=== PATIENT | male | born 1940 | race Caucasian/White ===

== ENCOUNTER 2017-07-20 23:13 | Inpatient (IN) ==
[2017-07-20 23:54] LABS: BASO% 0.6 % (0.0-0.8); EOS# 0.17 X1000 (0.0-0.7); EOS% 1.2 % (0.0-10.0); HEMATOCRIT 42.9 % (42.0-52.0); HEMOGLOBIN 14.3 g/dL (14.0-18.0); IMM GRAN# 0.11 X1000 (0.0-0.04); IMM GRAN% 0.8 % (0.0-0.5); LYMPH# 3.02 X1000 (1.2-3.4); LYMPH% 21.7 % (20.5-51.1); MANUAL DIFF NEEDED? NO; MCH 31.4 PG (27-31); MCHC 33.3 g/dL (33-37); MCV 94.1 FL (81-99); MONO% 6.5 % (1.7-9.3); MPV 11.1 FL (7.4-10.4); NEUT% 69.2 % (42.2-75.2); PLT 275 X1000 (130-400); RBC 4.56 XMIL (4.7-6.1)
[2017-07-20 23:59] LABS: INR 0.96; PROTIME 10.1 Seconds (9.2-11.7); PTT 24.9 Seconds (22.0-36.0)
[2017-07-21] MEDS ORDERED: ASPIRIN PO ONE (00:01)
[2017-07-21 00:04] LABS: ALBUMIN 4.3 g/dL (3.5-5.0); CALCIUM 9.8 mg/dL (8.8-10.2); POTASSIUM 3.8 mmol/L (3.5-5.1); TOTAL BILIRUBIN 0.51 mg/dL (0.20-1.00); TOTAL PROTEIN 8.3 g/dL (6.3-8.3)
[2017-07-21 02:13] LABS: URINE MICRO REVIEW NEEDED? NO; URINE SOURCE CLEAN CATCH
[2017-07-21 02:16] LABS: BILIRUBIN URINE NEGATIVE (NEGATIVE); BLOOD URINE NEGATIVE (NEGATIVE); COLOR STRAW; GLUCOSE URINE NEGATIVE (NEGATIVE); LEUKOCYTES URINE NEGATIVE (NEGATIVE); NITRITE URINE NEGATIVE (NEGATIVE); PH URINE 5.5; PROTEIN URINE NEGATIVE (NEGATIVE); TURBIDITY URINE CLEAR (CLEAR); UROBILINOGEN URINE NORMAL (NORMAL)
[2017-07-21 02:18] LABS: UR EPITHELIAL CELLS <10 /HPF (<10); URINE BACTERIA NEGATIVE /HPF; URINE RBC <10 /HPF (<10); URINE WBC <10 /HPF (<10)
[2017-07-21 02:31] LABS: UR AMPHETAMINES QUAL NONE DETECTED (NONE DETECT); UR BARBITUATES QUAL NONE DETECTED (NONE DETECT); UR BENZODIAZEPIN QUAL NONE DETECTED (NONE DETECT); UR CANNABINOIDS QUAL NONE DETECTED (NONE DETECT); UR COCAINE QUAL NONE DETECTED (NONE DETECT); UR METHADONE QUAL NONE DETECTED (NONE DETECT); UR OPIATES QUAL NONE DETECTED (NONE DETECT); UR OXYCODONE QUAL NONE DETECTED (NONE DETECT); UR PCP QUAL NONE DETECTED (NONE DETECT)
[2017-07-21] MEDS ORDERED: NITROGLYCERIN SL PRN (03:52)
[2017-07-21] MEDS ORDERED: TYLENOL PO PRN (03:52)
[2017-07-21] MEDS ORDERED: ZOFRAN IV PRN (03:52)
[2017-07-21] MEDS ORDERED: PNEUMOVAX 23 IM ONE (05:24)
[2017-07-21] MEDS ORDERED: FLUZONE QUAD 2017-2018 SYRINGE IM ONE (05:25)
--- NOTE | 2017-07-21 06:08 | Diag Imaging Result Doc PS360 ---
EXAM: CHEST-1 VIEW HISTORY: syncope TECHNIQUE: Portable AP COMPARISON: 10/22/2012 FINDINGS: The lungs are well expanded. The heart is not enlarged. The vessels are not distended. There are no infiltrates. No effusion identified. IMPRESSION: Negative exam. Electronically signed by Skip Sharpe 07/21/2017 6:06 AM
[2017-07-21] MEDS: PRILOSEC PO SCH (06:45)
--- NOTE | 2017-07-21 07:43 | Diag Imaging Result Doc PS360 ---
EXAM: CT HEAD W/O CONTRAST HISTORY: SYNCOPE TECHNIQUE: CT brain without contrast. Dose reduction protocol. COMPARISON: None. FINDINGS: No parenchymal hemorrhage. No epidural or subdural hematoma. No subarachnoid hemorrhage. Mild chronic microvascular ischemic changes. No mass identified on this noncontrasted exam. No hydrocephalus. There is 50% opacification of the right maxillary sinus with an air-fluid level. IMPRESSION: 1.No hemorrhage 2.Chronic microvascular ischemic changes 3.Right maxillary sinusitis 4.A preliminary report was given at 1:20 AM Electronically signed by Skip Sharpe 07/21/2017 7:41 AM
[2017-07-21] MEDS ORDERED: ASPIRIN PO SCH (09:00)
[2017-07-21] MEDS: 1/2 NS 1,000 ML IV SCH (15:48)
[2017-07-21] MEDS: FLOMAX PO SCH (20:32)
[2017-07-21] MEDS: LOPRESSOR PO SCH (20:32)
[2017-07-22] MEDS: FLONASE NAS SCH ×2 (01:46→09:47)
[2017-07-22] MEDS: 1/2 NS 1,000 ML IV SCH ×2 (04:42→16:22)
[2017-07-22] MEDS: PRILOSEC PO SCH (06:32)
[2017-07-22 07:07] LABS: HDL 37 mg/dL (35-55); LDL 106 mg/dL; TRIGLYCERIDES 237 mg/dL (39-160); VLDL 47 mg/dL
[2017-07-22 08:07] LABS: CALCIUM 9.1 mg/dL (8.8-10.2); POTASSIUM 4.7 mmol/L (3.5-5.1)
[2017-07-22] MEDS: PRAVACHOL PO SCH (09:45)
[2017-07-22] MEDS: FLOMAX PO SCH ×2 (09:46→21:30)
[2017-07-22] MEDS: ASPIRIN EC PO SCH (09:46)
[2017-07-22] MEDS: ZYLOPRIM PO SCH (09:46)
[2017-07-22] MEDS: LOPRESSOR PO SCH ×2 (09:46→21:29)
[2017-07-22] MEDS: PROSCAR PO SCH (09:46)
[2017-07-23] MEDS: 1/2 NS 1,000 ML IV SCH (05:35)
--- NOTE | 2017-07-23 05:39 | EKG Report ---
Test Performed on : 07/20/2017 11:23:03 PM Test Reason : SYNCOPE Blood Pressure : / mmHG Vent. Rate : 093 BPM Atrial Rate : 093 BPM P-R Int : 214 ms QRS Dur : 144 ms QT Int : 392 ms P-R-T Axes : 001 011 237 degrees QTc Int : 487 ms Sinus rhythm. with 1st degree AV block. Left bundle branch block Abnormal ECG When compared with ECG of 05-APR-2009 15:01, Left bundle branch block is now present Minimal criteria for Anterior infarct are no longer present Unconfirmed Result
[2017-07-23] MEDS: PRILOSEC PO SCH (06:05)
[2017-07-23 06:43] LABS: MANUAL DIFF NEEDED? NO
[2017-07-23 06:54] LABS: BASO% 0.6 % (0.0-0.8); EOS# 0.38 X1000 (0.0-0.7); EOS% 2.6 % (0.0-10.0); HEMATOCRIT 40.6 % (42.0-52.0); HEMOGLOBIN 13.4 g/dL (14.0-18.0); IMM GRAN# 0.06 X1000 (0.0-0.04); IMM GRAN% 0.4 % (0.0-0.5); LYMPH# 4.26 X1000 (1.2-3.4); MONO# 0.98 X1000 (0.11-0.59); MONO% 6.7 % (1.7-9.3); MPV 10.9 FL (7.4-10.4); NEUT% 60.7 % (42.2-75.2); PLT 239 X1000 (130-400); RBC 4.32 XMIL (4.7-6.1)
[2017-07-23 06:59] LABS: INR 0.96
[2017-07-23 07:03] LABS: CALCIUM 9.5 mg/dL (8.8-10.2); POTASSIUM 4.4 mmol/L (3.5-5.1)
[2017-07-23] MEDS: FLONASE NAS SCH (08:39)
[2017-07-23] MEDS: ZYLOPRIM PO SCH (08:39)
[2017-07-23] MEDS: PRAVACHOL PO SCH (08:39)
[2017-07-23] MEDS: FLOMAX PO SCH (08:39)
[2017-07-23] MEDS: PROSCAR PO SCH (08:39)
[2017-07-23] MEDS: ASPIRIN EC PO SCH (08:39)
[2017-07-23] MEDS: LOPRESSOR PO SCH (08:39)
[2017-07-23] MEDS ORDERED: HEPARIN 1000 UNITS/NS 2,000 UNIT/1,000 ML IV.SOLN ONE (08:41)
[2017-07-23] MEDS ORDERED: VERSED ONE (09:38)
[2017-07-23] MEDS ORDERED: MORPHINE ONE (09:39)
[2017-07-23] MEDS ORDERED: CLAVE TWINSITE 32 IN 11959 ONE (09:44)
--- NOTE | 2017-07-23 12:22 | EKG Report ---
Test Performed on : 07/23/2017 11:49:08 AM Test Reason : post cath Blood Pressure : / mmHG Vent. Rate : 060 BPM Atrial Rate : 060 BPM P-R Int : 264 ms QRS Dur : 140 ms QT Int : 452 ms P-R-T Axes : -01 006 162 degrees QTc Int : 452 ms Sinus rhythm. with 1st degree AV block. Left bundle branch block Abnormal ECG When compared with ECG of 20-JUL-2017 23:23, Vent. rate has decreased BY 33 BPM Confirmed by Olamide TAYLOR, Garry Murray ([id number]) on 07/23/2017 8:51:10 PM
--- NOTE | 2017-07-23 14:35 | ECHO REPORT ---
ORDER DATE: 07/22/2017 2D ECHOCARDIOGRAM: ECHOCARDIOGRAPHIC MEASUREMENTS: 1. Interventricular septum 0.9 left ventricular posterior wall 0.9. Diastolic diameter 5.7. Left atrium 3.6. Aorta 3.7. Normal left ventricular cavity size. Estimated ejection fraction of 35-40%. There is global hypokinesis mild. 2. Aortic valve leaflet were trileaflet. Mitral valve was normal. Tricuspid valve was normal. Pulmonic valve was normal. Peak velocity across the aortic valve less than 2 m/sec. There is no aortic stenosis. There is mild aortic regurgitation. There is trace to mild mitral regurgitation. Mild tricuspid regurgitation. Peak velocity across the tricuspid valve was less than 2 m/sec. There is trace pulmonary regurgitation. 3. There is no pericardial effusion or obvious intracardiac mass or thrombus seen. cc: Rashad Pacheco MD
[2017-07-23 15:35] VITALS: BP 121/64
[2017-07-24] MEDS ORDERED: PRINIVIL PO SCH (09:00)
== END 2017-07-23 17:15 | disposition home or self-care (01) ==
LOC: 3N 23:13 → ED 23:13 → SUATTDRO 07-21 03:40 → 3S 07-23 09:31
PROVIDERS: ATTEND Internal Medicine

== ENCOUNTER 2019-04-04 12:31 | Inpatient (IN) ==
[2019-04-04] MEDS ORDERED: ZOFRAN IV ONE (12:51)
[2019-04-04] MEDS ORDERED: NS 1,000 ML IV ONE ×2 (12:51→15:19)
[2019-04-04] MEDS ORDERED: MORPHINE IV ONE (12:51)
[2019-04-04] MEDS ORDERED: BENTYL IM ONE (12:53)
[2019-04-04 13:39] LABS: BASO# 0.07 X1000 (0.0-0.2); BASO% 0.4 % (0.0-0.8); EOS# 0.03 X1000 (0.0-0.7); EOS% 0.2 % (0.0-10.0); HEMATOCRIT 45.6 % (42.0-52.0); HEMOGLOBIN 15.2 g/dL (14.0-18.0); IMM GRAN# 0.05 X1000 (0.0-0.04); IMM GRAN% 0.3 % (0.0-0.5); LYMPH# 1.63 X1000 (1.2-3.4); LYMPH% 10.4 % (20.5-51.1); MCH 29.2 PG (27-31); MCHC 33.3 g/dL (33-37); MCV 87.5 FL (81-99); MONO# 0.85 X1000 (0.11-0.59); MONO% 5.4 % (1.7-9.3); NEUT# 13.05 X1000 (1.4-6.5); NEUT% 83.3 % (42.2-75.2); PLT 253 X1000 (130-400); RBC 5.21 XMIL (4.7-6.1); RDW 16.6 % (11.5-14.5); WBC 15.68 X1000 (4.8-10.8)
[2019-04-04 13:50] LABS: INR 0.96; PROTIME 13.6 Seconds (11.0-16.0)
[2019-04-04 13:55] LABS: URINE SOURCE CLEAN CATCH
[2019-04-04 13:57] LABS: ALB/GLOB RATIO 1.1; CREATININE 1.3 mg/dL (0.7-1.2); MAGNESIUM 1.9 mg/dL (1.5-2.7); POTASSIUM 3.3 mmol/L (3.5-5.1); TOTAL BILIRUBIN 1.17 mg/dL (0.20-1.00); TOTAL PROTEIN 7.8 g/dL (6.3-8.3)
[2019-04-04 13:58] LABS: BILIRUBIN URINE NEGATIVE (NEGATIVE); BLOOD URINE TRACE (NEGATIVE); COLOR YELLOW; GLUCOSE URINE NEGATIVE (NEGATIVE); KETONE URINE NEGATIVE (NEGATIVE); LEUKOCYTES URINE NEGATIVE (NEGATIVE); NITRITE URINE NEGATIVE (NEGATIVE); PH URINE 5.5; PROTEIN URINE 100 mg/dL (NEGATIVE); SP GRAVITY URINE 1.024; TURBIDITY URINE CLEAR (CLEAR); UROBILINOGEN URINE NORMAL (NORMAL)
[2019-04-04 14:00] LABS: UR EPITHELIAL CELLS <10 /HPF (<10); URINE BACTERIA NEGATIVE /HPF; URINE RBC <10 /HPF (<10); URINE WBC <10 /HPF (<10)
[2019-04-04 14:16] LABS: URINE CASTS GRANULAR PRESENT
--- NOTE | 2019-04-04 15:00 | Diag Imaging Result Doc PS360 ---
CT ABD/PELVIS W/IV CONT ONLY - 04/04/2019 INDICATION: colitis COMPARISON: None FINDINGS: The lung bases are clear and the heart size is normal. There are cholecystectomy changes. Otherwise all abdominal organs are normal. There is some ill-defined edema around the cecum and ascending colon. There are a few scattered diverticula of the colon. No constipation. There is a benign-appearing, rim calcified cyst of the omentum inferiorly. There is another rim calcified area of fatty scarring at the sigmoid colon. Urinary bladder is collapsed with nonspecific wall thickening. Prostate and rectum are normal. There are small bilateral fat-containing inguinal hernias. No free air or free fluid. There are moderate degenerative changes of the spine. No acute or suspicious bony lesion. IMPRESSION: 1. Colitis of the proximal colon. Mild diverticulosis of the distal colon. 2. Collapsed gallbladder with nonspecific wall thickening. This exam was performed using automated exposure control, adjustment of mA or kV according to patient size, and/or use of iterative reconstruction technique Electronically signed by Lincoln Dunn 04/04/2019 2:58 PM
[2019-04-04] MEDS ORDERED: ZOSYN 4.5 GM in NS 100 ML IV ONE (15:14)
--- NOTE | 2019-04-04 15:23 | PROVIDER DOCUMENTATION ---
This chart was entered by Sandy Velazquez Scribe, acting as scribe for Jesus Rose MD. HPI-Abdominal Pain/GI Problem - General Chief Complaint: Diarrhea Stated Complaint: STOMACH PAIN/DIARRHEA Time Seen by Provider: 04/04/19 12:44 Source: patient Allergies/Adverse Reactions: Patient Allergies Allergy/AdvReac Type Severity Reaction Status Date / Time No Known Allergies Allergy Verified 04/04/19 13:00 Home Medications: Home Medication List Medication Instructions Recorded Confirmed Last Taken Type Allopurinol 300 mg PO DAILY 06/22/12 07/21/17 07/20/17 07:00 History Docusate Sodium [Colace] 100 mg PO DAILY 06/22/12 07/21/17 07/20/17 07:00 Hi story LISINOpril [Prinivil] 20 mg PO DAILY 06/22/12 07/21/17 07/20/17 07:00 History Methocarbamol [Robaxin] 500 mg PO BID 06/22/12 07/21/17 07/20/17 07:00 History Metoprolol [Lopressor] 25 mg PO BID 06/22/12 07/21/17 07/20/17 07:00 History PRAVAstatin [Pravachol] 20 mg PO DAILY 06/22/12 07/21/17 07/20/17 07:00 History Loratadine 10 mg PO DIRECTED #7 tablet 10/22/12 07/21/17 07/20/17 07:00 Rx Aspirin [Aspirin EC] 81 mg PO DAILY 07/17/13 07/21/17 07/20/17 07:00 History Finasteride [Proscar] 5 mg PO DAILY 07/17/13 07/21/17 07/20/17 07:00 History Duloxetine [Cymbalta] 30 mg PO QHS 07/21/17 07/21/17 07/19/17 21:00 History Tramadol [Ultram] 50 mg PO Q6H PRN PRN 07/21/17 07/21/17 Unknown History Fluticasone 50 Mcg Nasal Brandon 1 spray PEALR DAILY #1 bottle 07/23/17 Unknown Rx [Flonase] LISINOpril [Prinivil] 20 mg PO DAILY tablet 07/23/17 Unknown Rx Tamsulosin [Flomax] 0.4 mg PO BID capsule 07/23/17 Unknown Rx - History of Present Illness-ABD Nature of Presenting Problems: Patient is a 78 year old male who presents with lower abdominal pain, diarrhea and body aches that have been present for 5 days. Denies fever, nausea, and vomiting. Reports he has not recently took antibiotics. Abdominal Pain Onset Location: reports: other (lower) Pain Radiation: reports: no radiation Quality of Pain: reports: aching Severity in ED: reports: mild Onset/Duration: reports: 5 days ago Timing: reports: still present Activities at Onset: reports: light activity Associated Symptoms: reports: diarrhea, muscle aches. denies: nausea, vomiting Dark Stools Present?: reports: none noticed Rectal Bleeding: reports: none Rectal Pain: reports: none Emesis Description: reports: none Similar Symptoms Previously?: Yes Recently seen or treated by another doctor?: No Review of Systems - Adult - REVIEW OF SYSTEMS - ADULT Constitutional: reports: no symptoms reported. denies: chills, fever, fatique Eyes: reports: no symptoms reported Ears, Nose, Mouth & Throat: reports: no symptoms reported Cardiovascular: reports: no symptoms reported Respiratory: reports: no symptoms reported Gastrointestinal: reports: see HPI, abdominal pain (lower), diarrhea. denies: nausea, vomiting Genitourinary: reports: no symptoms reported Musculoskeletal: reports: see HPI, muscle aches. denies: back pain, neck pain Integumentary: reports: no symptoms reported Neurological: reports: no symptoms reported Psychiatric: reports: no symptoms reported Endocrine: reports: no symptoms reported Hematologic/Lymphatic: reports: no symptoms reported Allergic/Immunologic: reports: no symptoms reported All Other Systems: Reviewed and Negative Past History - Adult - PAST MEDICAL HISTORY-ADULT Review of Records: reports: Old Records Reviewed, Nursing Assessment Review, Medications Reviewed, Social history reviewed & non-contributory. Major Childhood Illnesses: reports: denies history Cardiovascular: reports: HTN, hyperlipidemia, other (cardiac stent x1) Respiratory: reports: denies history Gastrointestinal: reports: denies history Obstetrical/Gynecological: reports: denies history Genitourinary: reports: other (prostate issues) Musculoskeletal: reports: arthritis (gout) Neurological: reports: dementia Endocrine/Immune: reports: denies history Other Conditions: reports: denies history - PRIOR SURGERIES/PROCEDURES Surgical/Procedure History: reports: colonoscopy, cholecystectomy, other (skin ca removal) - IMMUNIZATION STATUS Childhood Immunizations: See Nurse Assessment Flu Vaccine: See Nurse Assessment - FAMILY HISTORY Family History: reviewed, not pertinent - SOCIAL HISTORY Smoking: cigarettes, less than 1 pack/day Provider spent 3-5 mins advising pt. on dangers of tobacco.: Discussed manners to quit use, and f/u contacts for add'l counseling. Substance Use: denies Living Situation: family Physical Exam-General - PHYSICAL EXAM-ADULT Initial Vital Signs Reviewed: Yes - CONSTITUTIONAL General Appearance: alert, no apparent distress. negative: lethargic, slow to respond - HEAD, EARS, NOSE, MOUTH & THROAT HENMT: normocephalic/atraumatic, other (dry mucous membranes). negative: angioedema, hearing deficit - RESPIRATORY Respiratory: chest non-tender, lungs clear, normal breath sounds. negative: crackles, rhonchi, stridor - CARDIOVASCULAR Cardiovascular: normal peripheral pulses, tachycardia. negative: systolic murmur - GASTROINTESTINAL (ABDOMEN) Abdominal Exam: normal bowel sounds, non tender, soft. negative: guarding, rebound - MUSCULOSKELETAL Extremity: non-tender, normal inspection. negative: deformity, erythema - SKIN Integumentary: normal color, normal turgor, warm/dry. negative: cyanosis, ecchymosis, erythema, jaundice - NEUROLOGIC Neurologic: grossly normal. negative: aphasia, facial droop - PSYCHIATRIC Psych/Mental Status: normal mood/affect, oriented x 3. negative: anxious Progress - PLAN OF CARE/RESULTS Progress/Plan/Lab Results: Vital Signs - 8 hr 04/04/19 12:37 Temperature 98.5 F Pulse Rate 108 H Respiratory Rate 18 Blood Pressure 127/82 O2 Sat by Pulse Oximetry 97 Result Diagrams: 04/04/19 13:10 04/04/19 13:17 - REASSESSMENT Reassessment #1 Time Reassessed: 15:20 Status: improving (after ivf and pain meds. Will give IV zosyn. Patient meets criteria for sepsis, but not severe sepsis.) - CT/MRI 1 CT Study: Abdomen, Pelvis Impression: See EMR Report (Signed CT ABD/PELVIS W/IV CONT ONLY - 04/04/2019 INDICATION: colitis COMPARISON: None FINDINGS: The lung bases are clear and the heart size is normal. There are cholecystectomy changes. Otherwise all abdominal organs are normal. There is some ill-defined edema around the cecum and ascending colon. There are a few scattered diverticula of t he colon. No constipation. There is a benign-appearing, rim calcified cyst of the omentum inferiorly. There is another rim calcified area of fatty scarring at the sigmoid colon. Urinary bladder is collapsed with nonspecific wall thickening. Prostate and rectum are normal. There are small bilateral fat- containing inguinal hernias. No free air or free fluid. There are moderate degenerative changes of the spine. No acute or suspicious bony lesion. IMPRESSION: 1. Colitis of the proximal colon. Mild diverticulosis of the distal colon. 2. Collapsed gallbladder with nonspecific wall thickening. This exam was performed using automated exposure control, adjustment of mA or kV according to patient size, and/or use of iterative reconstruction technique Electronically signed by Lincoln Dunn 04/04/2019 2:58 PM 04/04/19 0978 Interpreting Physician: Lincoln Dunn MD Dictated Date/Time: 04/04/19 1449 cc: Jesus Rose MD; Ruthie Allen) - CONSULTS/PCP/HOSPITALIST Notification #1 *Consult/PCP/Hospitalist*: VICTORIA Ortega for Hospitalist Time Discussed: 15:17 (Dr. Chambers accepted admit) Reason/Comments: Dr. Rose consulted with Shannon about patient. Consult Disposition: Will see in ED, Admit Departure - Departure Date of Disposition Decision: 04/04/19 Time of Disposition Decision: 15:18 DIAGNOSIS: Diverticulitis large intestine w/o perforation or abscess w/o bleeding, Colitis, Sepsis without acute organ dysfunction Disposition: ADMITTED INPATIENT 09 Certified Medical Emergency: Emergent Condition: Fair Referrals and Follow-Ups: Ruthie Allen [Primary Care Provider] - - Critical Care Note This patient required my direct & personal management of CC.: No Attestation - Physician/ NICOLASA Attestation Patient care was provided by Advanced Practice Provider:: No The physician spent face to face time with patient:: Yes Advanced Practice Provider documentation review:: Supervising physician onsite and consulted in the evaluation and care of this patient. The physician did have a face to face encounter with the patient. This chart was documented by the indicated scribe, (Sandy Velazquez Scribe) and accurately reflects the services I performed and decisions made by me, Jesus Rose MD, as attested by the provider's signature.
[2019-04-04] MEDS ORDERED: MORPHINE IV PRN (17:35)
[2019-04-04] MEDS ORDERED: ZOFRAN IV PRN (17:35)
[2019-04-04 18:59] LABS: INR 0.99; PROTIME 13.9 Seconds (11.0-16.0)
--- NOTE | 2019-04-04 19:04 | Diag Imaging Result Doc PS360 ---
CHEST-1 VIEW - 04/04/2019 INDICATION: Sepsis protocol COMPARISON: 07/21/2017 FINDINGS: The lungs are normally expanded and clear. Heart size and mediastinal contours are normal. No pneumothorax or pleural effusion. IMPRESSION: Negative exam. Electronically signed by Lincoln Dunn 04/04/2019 7:01 PM
--- NOTE | 2019-04-04 20:24 | HISTORY AND PHYSICAL ---
PRIMARY CARE PROVIDER: Dr. Ruthie Allen. CHIEF COMPLAINT: Initially, patient said he did not have any complaints; however, son at bedside said he has some dementia, and he was having some right lower quadrant pain. HISTORY OF PRESENT ILLNESS: Mr. Conteh is a 78-year-old male who carries a past medical history of dementia, coronary artery disease and hypertension. Presented to the ED with complaint of abdominal pain, watery diarrhea and continued increase in weakness. Per the son, he goes to bed at 9, does not get up till noon. He will get up and nap on the couch and then go back to bed that night. He denies any fever, chills, headache, cough, nausea, vomiting, chest pain or shortness of breath per se. He does feel that he gets winded after he is up and trying to walk around. Workup in the ED: Abdomen and pelvis CT showed colitis of the proximal colon, mild diverticulitis of the distal colon, and a collapsed gallbladder with nonspecific wall thickening. He also had an elevated white count of 15. Appears to have acute on chronic kidney disease. He also had a elevated T-bili. We will admit him to the medical telemetry floor and treat him for diverticulitis. Await Dr. Rodriguez's recommendation. He was started on IV Zosyn. REVIEW OF SYSTEMS: Twelve-point review of systems completely negative except for those mentioned in HPI. PAST MEDICAL HISTORY: 1. Coronary artery disease. 2. Hypertension. 3. Dementia. 4. Benign prostatic hypertrophy. PAST SURGICAL HISTORY: 1. Coronary stent. 2. Cholecystectomy. ALLERGIES: No known drug allergies. HOME MEDICATIONS: Have not been reconciled. SOCIAL HISTORY: He lives with his son. He was a [id number] smoker previously, but he has stopped and started throughout the years. No alcohol or illicit drug use. FAMILY HISTORY: Positive for coronary artery disease in his father. PHYSICAL EXAMINATION: GENERAL: Mr. Conteh is a pleasant 78-year-old male who is sitting on the stretcher asleep. He awakened easily. He is in no acute distress. HEENT: Atraumatic, normocephalic. PERRL. NECK: Supple. Trachea midline. CARDIOVASCULAR: S1, S2 appreciated. No murmurs, gallops, rubs noted. RESPIRATORY: Lung sounds clear bilaterally . ABDOMEN: Soft, mildly tender to his right lower quadrant. Positive bowel sounds in 4 quadrants. EXTREMITIES: Negative for edema. The patient is awake, alert, oriented x4. Follows commands. Moves all extremities. DIAGNOSTIC DATA: CT per HPI. LABORATORY DATA: White count 15, hemoglobin and hematocrit 15 and 45, platelet count 253. Sodium 136, potassium 3.3, BUN 18, creatinine 1.3, blood glucose 120, T bilirubin 1.17, alkaline phosphatase 163. Urinalysis was negative for nitrates, negative for bacteria. ASSESSMENT AND PLAN: 1. Diverticulitis. The patient was given IV Zosyn. We will continue with antibiotics, IV fluids. Placed on a clear liquid diet. Will provide him with antiemetics and pain medication. Consult Dr. Rodriguez. Blood cultures have also been obtained. 2. Leukocytosis secondary to #1. 3. Coronary artery disease. No complaint of chest pain. 4. Hypertension, stable. Will continue home medications when verified and appropriate. 5. Dementia. The patient is pleasant. 6. Benign prostatic hypertrophy. Aware. 7. Further recommendations to follow physician evaluation, laboratory and diagnostic data. Dictated by VICTORIA Dale for Gerry Chambers MD cc: Gerry Chambers MD ADDENDUM: I agree with most components of history, physical, assessment and plan. A separate addendum has been dictated. SOWMYA
[2019-04-04] MEDS ORDERED: ZOSYN 3.375 GM in NS 50 ML IV SCH (21:00)
[2019-04-04] MEDS: SINGULAIR PO SCH (21:38)
[2019-04-04] MEDS: CYMBALTA PO SCH (21:38)
[2019-04-04] MEDS: ARICEPT PO SCH (21:39)
[2019-04-04] MEDS: KLOR-CON PO SCH ×2 (21:39→23:28)
[2019-04-04] MEDS: TOPROL XL PO SCH (21:39)
[2019-04-04] MEDS: PRAVACHOL PO SCH (21:39)
--- NOTE | 2019-04-04 21:56 | HISTORY AND PHYSICAL ---
ADDENDUM: This is an addendum to the History and Physical dictated by the nurse practitioner. I agree with most components of the history, physical, assessment, and plan. In brief, Mr. Conteh is a 78-year-old man, with a past medical history of coronary artery disease requiring stent in approximately 2011, essential hypertension, gout, hyperlipidemia, benign prostatic hypertrophy, chronic pain, COPD, who quit smoking approximately 30 years ago, on inhalers at home, obstructive sleep apnea on home CPAP, who comes in with chief complaints of abdominal pain and diarrhea of about 7 days duration. Patient does have mild cognitive impairment. Patient mentions that he has been having loose watery stools since the last 7 days, which got worse to an extent that he has had 4 or 5 loose watery bowel movements at nighttime, associated with abdominal pain, so he woke his son up in the morning time and they decided to come to the emergency room. In the emergency room, he was found to have sepsis with leukocytosis, tachycardia, and hypokalemia, and so hospitalist team was consulted for further management. At the time of my evaluation, patient also mentions exertional dyspnea, and he has a scheduled appointment with Dr. Pacheco outpatient. He denies any chest pain or shortness of breath at rest. His abdominal pain has resolved. PHYSICAL EXAMINATION: VITAL SIGNS: Temperature of 98 degrees, pulse 75, respiratory rate 16, blood pressure 150/63, saturating 94% on room air. GENERAL: Does not appear in any acute distress. ORAL CAVITY: Dry. LUNGS: Air entry bilaterally equal. No wheeze, rhonchi, crackles. CARDIOVASCULAR: S1, S2 normal. No murmur or gallop. ABDOMEN: Soft, nontender. Active bowel sounds. EXTREMITIES: No lower extremity edema. NEUROLOGIC: He is alert. He is oriented to time, place, and person, and mildly with the situation. However, he does have some memory impairment. LABS: Suggestive of leukocytosis with WBC of 15,000, normal hemoglobin, normal platelet count. Potassium of 3.3 and his hypokalemia is currently being repleted. He does have chronic kidney disease stage 3. MICROBIOLOGY: Blood cultures are in lab. C difficile toxin was negative. IMAGING: Chest x-ray was unremarkable. Abdomen/pelvis CT had colitis of the proximal colon and mild diverticulosis. ASSESSMENT AND PLAN: 1. Sepsis due to right-sided colitis, which could be viral or bacterial considering his prolonged symptoms. 2. Hypokalemia. 3. Chronic kidney disease, stage 3. 4. Exertional shortness of breath. 5. Obstructive sleep apnea. 6. Essential hypertension, gout, hyperlipidemia, benign prostatic hypertrophy, chronic pain. 7. Chronic obstructive pulmonary disease without acute exacerbation. PLAN: 1. I will start patient on intravenous antibiotics, ceftriaxone and metronidazole. Follow up with blood culture results. 2. Start patient on clear liquid diet. 3. Replete his potassium. 4. Resume his home medications. 5. I will also get EKG as a baseline. He has been having exertional shortness of breath since many months now, and I advised him to get outpatient cardiology evaluation. 6. Disposition. I will continue to monitor patient inside the hospital. Plan of care was discussed with the patient and his son at bedside. All of their questions have been answered. Patient had to perform in a birthday democrat on Sunday, and I discussed with them that his discharge plan would depend on his recovery. cc: Gerry Chambers MD
[2019-04-04] MEDS: FLAGYL 500 MG/NS 500 MG/100 ML IVPB IV SCH (22:44)
[2019-04-05] MEDS: ROCEPHIN 1 GM in NS 50 ML IV SCH (01:40)
[2019-04-05] MEDS: FLAGYL 500 MG/NS 500 MG/100 ML IVPB IV SCH ×4 (04:48→23:10)
[2019-04-05] MEDS: ZYLOPRIM PO SCH (08:34)
[2019-04-05] MEDS: PROSCAR PO SCH (08:34)
[2019-04-05] MEDS: ASPIRIN EC PO SCH (08:35)
[2019-04-05] MEDS: TOPROL XL PO SCH (08:36)
[2019-04-05] MEDS ORDERED: VITAMIN D PO SCH (09:00)
[2019-04-05] MEDS: CALMOSEPTINE OINTMENT TOP PRN ×2 (11:25→23:11)
[2019-04-05] MEDS: VITAMIN B-12 PO SCH (11:31)
[2019-04-05] MEDS: VITAMIN D PO SCH (11:32)
[2019-04-05 11:35] LABS: BASO# 0.09 X1000 (0.0-0.2); BASO% 0.7 % (0.0-0.8); EOS# 0.22 X1000 (0.0-0.7); EOS% 1.6 % (0.0-10.0); HEMATOCRIT 43.9 % (42.0-52.0); HEMOGLOBIN 14.2 g/dL (14.0-18.0); IMM GRAN# 0.04 X1000 (0.0-0.04); IMM GRAN% 0.3 % (0.0-0.5); LYMPH# 3.14 X1000 (1.2-3.4); LYMPH% 23.5 % (20.5-51.1); MCHC 32.3 g/dL (33-37); MCV 89.6 FL (81-99); MONO# 1.06 X1000 (0.11-0.59); MONO% 7.9 % (1.7-9.3); MPV 10.3 FL (7.4-10.4); NEUT# 8.84 X1000 (1.4-6.5); PLT 233 X1000 (130-400); RDW 16.6 % (11.5-14.5); WBC 13.39 X1000 (4.8-10.8)
[2019-04-05 11:53] LABS: CALCIUM 8.7 mg/dL (8.8-10.2); CREATININE 1.2 mg/dL (0.7-1.2); POTASSIUM 3.6 mmol/L (3.5-5.1)
--- NOTE | 2019-04-05 14:08 | PROGRESS NOTE ---
DATE: 04/05/2019 INTERVAL HISTORY: He had episode of bradycardia with heart rate in 40s. Telemetry strip has sinus or junctional bradycardia with wide complex. He has had about 7 to 8 bowel movements since he has been in this room. However, 4 of them have been charted. He is hungry and wants to eat more. He denies any chest pain, nausea, vomiting, or abdominal pain. His diarrhea is only complaint. Stool sample has not been collected yet. Family is at bedside. VITALS: Temperature 97.7 degrees, pulse 60, respiratory 24, blood pressure 140/70. He is saturating 97% on room air. PHYSICAL EXAMINATION: He does not appear in any acute distress. He did not use CPAP at nighttime. Oral cavity is moist.Lungs: Air entry bilaterally equal. No wheeze or crackles. Cardiovascular: S1, S2 normal. No murmur or gallop. Abdomen: Soft. Active bowel sounds. No tenderness. No hepatosplenomegaly. Extremities: No lower extremity edema. Neurologic: He is alert. He is oriented to himself, situation with some mild memory impairment. LABS: Suggestive of persistent leukocytosis, normal hemoglobin, normal platelet count. His potassium has been repleted. He does appear to have chronic kidney disease stage 3, which is stable. Microbiology: Blood cultures are in lab. C difficile toxin analysis was negative. Electrocardiogram has not been performed yet. ASSESSMENT AND PLAN: 1. Sepsis due to right-sided colitis. Follow up final blood culture results, stool studies. This could be viral or bacterial colitis. He did have contact with the grandchildren over last few days. The history regarding the illness is pending though. Continue intravenous ceftriaxone and metronidazole. Continue full liquid diet. 2. Hypokalemia resolved. 3. Chronic kidney disease stage 3 appears to be stable. 4. Exertional shortness of breath, likely because of his history of chronic obstructive pulmonary disease and coronary artery disease. I will follow up with EKG. He is not complaining of chest pain or shortness of breath at rest at rest. I would defer management to outpatient provider. I will continue his home aspirin. 5. Essential hypertension, hyperlipidemia, continue home metoprolol and pravastatin. 6. Others. Continue on donepezil for mild cognitive impairment; duloxetine for chronic pain; allopurinol for gout; finasteride for history of benign prostatic hypertrophy. 7. Disposition. I will continue to monitor patient inside hospital as we monitor him for resolution of diarrhea. We will follow up with stool studies. Plan of care discussed with the patient and his son at bedside. All of the questions have been answered. cc: Gerry Chambers MD MTDD
[2019-04-05 22:39] LABS: AGAP 13; BUN 13 mg/dL (8-22); CALCIUM 8.3 mg/dL (8.8-10.2); CHLORIDE 105 mmol/L (98-107); COSMO 279; ESTIMATED GFR > 60; GLUCOSE 91 mg/dL (70-104); MAGNESIUM 1.9 mg/dL (1.5-2.7); SODIUM 140 mmol/L (136-145); TCO2 22 mmol/L (25-35)
[2019-04-05] MEDS: ARICEPT PO SCH (23:10)
[2019-04-05] MEDS: PRAVACHOL PO SCH (23:10)
[2019-04-05] MEDS: CYMBALTA PO SCH (23:11)
[2019-04-05] MEDS: SINGULAIR PO SCH (23:11)
[2019-04-06] MEDS: ROCEPHIN 1 GM in NS 50 ML IV SCH (00:24)
[2019-04-06] MEDS: FLAGYL 500 MG/NS 500 MG/100 ML IVPB IV SCH ×3 (04:14→15:30)
[2019-04-06 06:20] LABS: BASO% 1.3 % (0.0-0.8); EOS# 0.37 X1000 (0.0-0.7); EOS% 4.9 % (0.0-10.0); HEMATOCRIT 39.3 % (42.0-52.0); IMM GRAN# 0.03 X1000 (0.0-0.04); IMM GRAN% 0.4 % (0.0-0.5); LYMPH# 2.13 X1000 (1.2-3.4); LYMPH% 28.5 % (20.5-51.1); MCH 29.4 PG (27-31); MCHC 33.1 g/dL (33-37); MCV 88.9 FL (81-99); MONO# 0.59 X1000 (0.11-0.59); MONO% 7.9 % (1.7-9.3); MPV 10.7 FL (7.4-10.4); NEUT# 4.26 X1000 (1.4-6.5); PLT 206 X1000 (130-400); RBC 4.42 XMIL (4.7-6.1); RDW 16.1 % (11.5-14.5); WBC 7.48 X1000 (4.8-10.8)
[2019-04-06] MEDS: ASPIRIN EC PO SCH (08:56)
[2019-04-06] MEDS: ZYLOPRIM PO SCH (08:57)
[2019-04-06] MEDS: VITAMIN B-12 PO SCH (08:59)
[2019-04-06] MEDS ORDERED: TOPROL XL PO SCH (09:00)
[2019-04-06] MEDS ORDERED: NORVASC PO SCH (09:00)
[2019-04-06] MEDS: PROSCAR PO SCH (09:01)
[2019-04-06] MEDS: VITAMIN D PO SCH (09:02)
[2019-04-06] MEDS ORDERED: IMODIUM PO SCH (12:00)
[2019-04-06] MEDS ORDERED: CULTURELLE PO SCH (12:15)
--- NOTE | 2019-04-06 13:20 | PROGRESS NOTE ---
DATE: 04/06/2019 INTERVAL HISTORY: He has had a significant bradycardia episode with heart rate as low as 29. He was asymptomatic. He did not have any chest pain or shortness of breath. He was not hypotensive. His beta blockers were stopped on 04/04/2019. SUBJECTIVE: He states that the frequency of his diarrhea has improved, and he has noticed some blood in it and it looks black tarry. He denies any chest pain or shortness of breath. His last angiography was in 2011. OBJECTIVE: Current Vital Signs: Temperature 97.4 degrees, pulse 52, respiratory rate 20, blood pressure 140/57, he is saturating 98% on room air. General: Does not appear in any acute distress. HEENT: Oral cavity is moist. Lungs: Air entry bilaterally equal. No wheeze, rhonchi, crackles. Heart: S1, S2 normal. Bradycardic. Currently on bedside monitor is 50 per minute. Abdomen: Soft, nontender. Active bowel sounds. Extremities: No lower extremity edema. LABORATORY DATA: Labs suggestive of resolution of leukocytosis, close to normal hemoglobin and platelet count. His troponins yesterday were unremarkable x2. His electrolytes are not done today. MICROBIOLOGY: Clostridium difficile analysis was negative. Fecal occult blood test is as in lab. IMAGING: Telemetry strip had 2:1 block. EKG had first-degree heart block. ASSESSMENT AND PLAN: 1. Right-sided colitis. Differential includes ischemic colitis versus bacterial or viral colitis. Continue intravenous antibiotics. I will get stool culture and fecal occult blood test. I will start him on Lomotil. Clostridium difficile analysis has been negative. Continue full liquid diet. 2. Chronic kidney disease stage 3, appears to be stable. 3. Exertional shortness of breath with history of chronic obstructive pulmonary disease and coronary artery disease with stent in 2011 and episodes of 2:1 heart block. I have stopped his metoprolol and donepezil. He is denying any chest pain or shortness of breath. He is not hypotensive. I will consult Cardiology. 4. Continue home pravastatin for hyperlipidemia; duloxetine for chronic pain; allopurinol for gout; finasteride for history of BPH. 5. Disposition. I am considering to transfer the patient to [facility] versus intensive care unit. Plan of care discussed with the patient and his son. All of their questions have been answered. I told them about the possibility of transferring him out if he continues to have heart block episodes. cc: Gerry Chambers MD MTDD
--- NOTE | 2019-04-06 13:56 | CARDIOLOGY CONSULTATION ---
DATE: 04/06/2019 Cardiology was consulted for bradycardia, 2:1 AV block. Mr. Conteh is a 78-year-old gentleman with history of coronary artery disease, stent placement in 2011, gout, hypertension, benign prostatic hypertrophy, COPD, who comes with complaints of having loose stools for the last 7 days. There is no associated blood in his stools. There is no history of nausea or vomiting. In the emergency room, when he came in, he was noted to have leukocytosis, tachycardia, and hypokalemia, and patient was subsequently admitted. His diarrhea has improved, and his laboratory examination currently includes hemoglobin of 13.0, RBC 4.42, WBC was 15.68 when he was admitted on 04/04/2019 and currently WBC 7.48, platelet count of 206,000. Sodium 140, potassium 4.0, BUN 13, creatinine 1.0. When he came to the hospital, his sodium was 136, potassium 3.3, BUN 18, and creatinine 1.3. Cardiac enzymes negative. His chest x-ray was normal. He had an abdominal CT done which revealed colitis of his proximal colon. Mild diverticulosis. No other significant abnormality. From a cardiac standpoint, he denies any chest pain. However, on detailed questioning, for the last 6 months or so, he has noticed episodes of fatigue in walking from his home to his mailbox. In addition, his son says that when he walks from one room to a couple of other rooms at home he gets short of breath. He has not had any syncopal episode. However, he has had episodes of significant dizziness and near syncopal episode, no isai syncope. Denies chest pain suggestive of angina. REVIEW OF SYSTEMS: A 14-point review of system was done. Gastrointestinal System: As above. Cardiovascular System: As above. Genitourinary System: There is no dysuria or hematuria. Respiratory System: There is no history of cough, expectoration, hemoptysis. Constitutional: There is no history of fevers or chills. Endocrine System: Stable. PAST MEDICAL HISTORY: 1. Coronary artery disease, stent placement in the past. 2. Hypertension. 3. Gout. 4. Hyperlipidemia. 5. Benign prostatic hypertrophy. 6. Chronic pain. 7. COPD. Quit smoking 30 years back. HOME MEDICATIONS: Include: 1. Metoprolol 50 mg b.i.d. 2. Montelukast. 3. Benazepril 10. 4. Docusate stool softener. 5. Cyanocobalamin. 6. Cholecalciferol. 7. Duloxetine 30. 8. Aspirin 81 mg a day. 9. Finasteride 5. 10. Allopurinol 300. 11. Pravastatin 20. ALLERGIES: He is not known to be allergic to any medication. PHYSICAL EXAMINATION: On examination, blood pressure today was 140/57. Jugular venous pressure was normal First and second heart sounds were heard. The patient was afebrile. There was no S3 gallop. Respiratory System: Normal air entry. There are no crepitations or rhonchi. Abdomen was soft, nontender. There was no guarding or rigidity. Bowel sounds were heard. Central nervous system: Alert and oriented. Was moving all 4 extremities. Examination of extremities revealed no pedal edema. MICROBIOLOGICAL DATA: 1. C difficile was negative. 2. Blood cultures: No growth. ASSESSMENT: 1. Mr. Chaparro oCnteh is a 78-year-old gentleman, who is admitted with diarrhea. Was noted to have likely colitis. Final blood culture results, stool studies did not reveal any bacteremia. Clostridium difficile was negative. Currently, he is otherwise asymptomatic. His diarrhea has improved. 2. He has history of hypertension. 3. Stent placement in the past. 4. Hyperlipidemias. 5. Chronic obstructive pulmonary disease. 6. He also has history of gout. On the day of his admission at that time, he was taking metoprolol 50 mg a day. He received the last dose of metoprolol on the 04 of March on the day of admission. Subsequently his beta- blockers have been held given his bradycardia. On 04/05/2019 and 04/06/2019, he has been having episodes of 2:1 AV block with a heart rate of 30 beats per minute and sinus rhythm as well. Intermittently he has 2:1 AV block. This morning, telemetry revealed baseline left bundle branch with a 2:1 AV block, heart rate of 29 to 30 beats per minute. Repeat electrocardiogram currently revealed a sinus rhythm with first- degree AV block with left bundle branch block. However he continues to have 2:1 AV block. The patient has had left ventricular dysfunction echo cardiogram done today revealed EF 30-35% He from his history prior to this admission has had episodes of significant shortness of breath with grade 2-3 dyspnea on exertion associated with significant dizziness and near syncope, however, has not had any isai syncopal episode. He will likely need to be evaluated for of BIVAICD,automatic implantable cardioverter device placement. He has left ventricular dysfunction given his known coronary artery disease. His last ejection fraction by echocardiogram in 2016 revealed ejection fraction of 35% to 40%. He had a cardiac catheterization on 07/24/2017 which revealed left ventricular ejection fraction of 45%. Left circumflex artery demonstrates irregularities. The right coronary artery was dominant and free of disease in the major vessel, however, severe disease in the smaller ostial sub branch off posterior descending artery. Left main was normal. Left anterior descending artery short vessel. Diagonal was normal. Just after the origin of the first diagonal, there was 40% stenosis noted. The large 1st diagonal has a stent which was patent. Distal to stent, there was 30% to 40% stenosis. PLAN: Recommend transfer patient to , I will discuss with Electrophysiology for consideration of AICD placement in the morning. Thank you for the consult. We will follow hospital course. cc: Rashad Pacheco MD [facility]
--- NOTE | 2019-04-06 15:48 | ECHO REPORT ---
ORDER DATE: 04/06/2019 ECHOCARDIOGRAPHIC MEASUREMENTS: 1. Interventricular septum 1.1. 2. Left ventricular posterior wall 1.1. 3. Diastolic diameter 5.7. 4. Left atrium 4.2. 5. Aorta 3.9. SUMMARY: 1. Aortic valve leaflets were trileaflet. 2. Pulmonic valve was normal. 3. There is mild pulmonary regurgitation. 4. Mitral valve was normal. 5. Tricuspid valve was normal. 6. There is mild mitral regurgitation. 7. Peak velocity across the tricuspid valve was 2.4 m/sec. 8. Pulmonary artery systolic pressure of 34 mmHg. 9. There is mild tricuspid regurgitation. 10. There is no aortic stenosis. 11. There is mild aortic regurgitation. 12. Left bundle branch block was noted. 13. Normal left ventricular cavity size. 14. Estimated ejection fraction of 30 to 35 percent. 15. There is left atrial enlargement. 16. There is diastolic dysfunction. 17. There is no pericardial effusion or obvious intracardiac mass or thrombus seen. cc: MD Gerry Fonseca MD
[2019-04-06 20:12] VITALS: BP 156/72
--- NOTE | 2019-04-07 07:29 | EKG Report ---
Test Performed on : 04/05/2019 1:39:54 PM Test Reason : Decrease heart rate Blood Pressure : / mmHG Vent. Rate : 056 BPM Atrial Rate : 056 BPM P-R Int : 244 ms QRS Dur : 152 ms QT Int : 466 ms P-R-T Axes : -03 010 208 degrees QTc Int : 449 ms Sinus bradycardia. with 1st degree AV block. Left bundle branch block Abnormal ECG When compared with ECG of 23-JUL-2017 11:49, T wave inversion now evident in Inferior leads Confirmed by Olamide TAYLOR, Garry Murray ([id number]) on 04/07/2019 9:30:34 AM
--- NOTE | 2019-04-07 07:31 | EKG Report ---
Test Performed on : 04/06/2019 12:54:41 PM Test Reason : Bradycardia Blood Pressure : / mmHG Vent. Rate : 054 BPM Atrial Rate : 054 BPM P-R Int : 254 ms QRS Dur : 152 ms QT Int : 460 ms P-R-T Axes : 020 -05 180 degrees QTc Int : 436 ms Sinus bradycardia. with 1st degree AV block. Left bundle branch block Abnormal ECG When compared with ECG of 05-APR-2019 20:12, (Unconfirmed) No significant change was found Confirmed by Olamide TAYLOR, Garry Murray ([id number]) on 04/07/2019 9:31:01 AM
--- NOTE | 2019-04-07 09:52 | EKG Report ---
Test Performed on : 04/05/2019 8:12:10 PM Test Reason : 4N. No order in MT Blood Pressure : / mmHG Vent. Rate : 054 BPM Atrial Rate : 054 BPM P-R Int : 260 ms QRS Dur : 150 ms QT Int : 454 ms P-R-T Axes : -02 -04 206 degrees QTc Int : 430 ms Sinus bradycardia. with 1st degree AV block. Left bundle branch block Abnormal ECG When compared with ECG of 05-APR-2019 13:39, (Unconfirmed) No significant change was found Unconfirmed Result
--- NOTE | 2019-04-08 10:22 | DISCHARGE SUMMARY ---
ADMISSION DATE: 04/04/2019 DISCHARGE DATE: 04/06/2019 ADDENDUM: This is an addendum to previously dictated discharge summary since that discharge summary has not been showing up in records. DISCHARGE DISPOSITION: [facility] for pacemaker, with or without AICD placement. DISCHARGE DIAGNOSES: 1. Acute right-sided colitis. 2. Second-degree heart block with 2:1 heart block rhythm. 3. Exertional shortness of breath and dizziness at home, likely because of suspected heart block. 4. History of coronary artery disease and percutaneous intervention in 2011. 5. Benign prostatic hypertrophy. 6. Chronic kidney disease stage 3. DISCHARGE MEDICATIONS: 1. Intravenous ceftriaxone. 2. Intravenous metronidazole. 3. Oral Lomotil. 4. Pravastatin. 5. Duloxetine. 6. Allopurinol. 7. Finasteride. PHYSICAL EXAMINATION: Vital Signs Documented at Time of Discharge: Temperature 97.4 degrees, pulse 56, respiratory rate 21, blood pressure 146/72, saturating 99% room air. General: The patient does not appear in any acute distress. HEENT: Oral cavity is moist. Lungs: Air entry bilaterally equal. No wheeze, rhonchi, or crackles. Cardiovascular: S1, S2 normal. No murmur or gallop. Abdomen: Soft, nontender. Extremities: No lower extremity edema. Neurologic: The patient is alert and oriented x3. He does have some mild cognitive impairment. HOSPITAL COURSE SUMMARY: Mr. Conteh is a 78-year-old man with the above-mentioned past medical history, who initially presented with nausea, vomiting, multiple loose bowel movements, and right- sided abdominal pain, which had begun 7 days ago. However, it started getting worse on the day of arrival. In the emergency room, he was hemodynamically stable. However, he had leukocytosis and CT scan image evidence of right-sided colitis, so hospitalist team was consulted for admission for sepsis due to ulcerative colitis. He was resuscitated with intravenous fluids and intravenous antibiotics. Stool Clostridium difficile studies were unremarkable. On day 2 of hospitalization, his diarrhea frequency had decreased. However, his stools were still soft. He was kept on full liquid diet. However, on the second day of admission, he did develop significant episodes of bradycardia with heart rate of 40, with heart rhythm showing 2:1 block. On the first day of admission, he did receive metoprolol 50 mg extended-release, which could have contributed to his bradycardia, so it was discontinued. On day 3 of admission, he continued to have significant episodes of bradycardia with heart rate as low as 29 with 2:1 heart block intermittently, and then he would again go into his baseline rhythm of left bundle branch block. Considering his intermittent episodes, Cardiology was consulted. The patient was off his beta lionel for almost 40 hours, and despite that, he was developing that heart block, so echocardiogram was performed, which had reduced ejection fraction of 30% to 35%, so [facility] team was consulted for need for AICD and/or pacemaker, and the patient was transferred overnight. TIME SPENT: More than 30 minutes were spent in discharging this patient. cc: Gerry Chambers MD
== END 2019-04-06 20:56 | disposition short-term general hospital (02) | DRG 872 ==
LOC: ED 12:31 → 4N 17:50 → 3S 04-06 15:49
PROVIDERS: ATTEND Internal Medicine
CPT/HCPCS: 71010; 71045; 74177; 80048; 80053; 81001; 82270; 83605; 83690; 83735; 84443; 84484; 85025; 85610; 87040; 87045; 87046; 87324; 87427; 87449; 87798; 93005; 93010; 93306; 94760; 94761; 96361; 96372; 96374; 96375; 97161; 99285; A9270; J0500; J0696; J2270; J2405; J2543; J7030; Q9967; S0030; S0138